=== PATIENT | female | born 1955 | race Caucasian/White ===

== ENCOUNTER 2021-06-07 07:17 | Day surgery (SDC) | payer MEDICARE ==
[~2021-06-07] VITALS: Ht 160 cm; Wt 45.4 kg
[2021-06-07] MEDS ORDERED: SYNTHROID112 MCG PO (08:16)
[2021-06-07] MEDS ORDERED: WELLBUTRIN100 M2 PO (08:17)
[2021-06-07] MEDS ORDERED: HYDROCODONE BIT1 TA8 PO (08:19)
[2021-06-07] MEDS ORDERED: TRAZODONE100 MG PO (08:19)
[2021-06-07] MEDS ORDERED: GABAPENTIN100 MG PO (08:20)
[2021-06-07 10:25] VITALS: BP 118/71
== END 2021-06-07 10:48 | disposition home or self-care (01) ==
LOC: PO 07:17 → ORM 07:17
PROVIDERS: ATTEND Physical Medicine & Rehabilitation
DX: G57.71 Causalgia of right lower limb (principal)
CPT/HCPCS: Q9967